=== PATIENT | male | born 1960 | race Caucasian/White ===

== ENCOUNTER 2022-08-16 21:31 | Emergency (ER) | payer OTHER, SELFPAY ==
[2022-08-16 21:42] VITALS: BP 149/97; PULSE 56; RESP 16; TEMP 36.3; O2SAT 95; BMI 38.3
[2022-08-16 21:45] VITALS: O2SAT 96
--- NOTE | 2022-08-16 21:48 | CRLHL7_ITS ---
For Patients: As a result of the Century Cures Act, medical imaging exams and procedure reports are released immediately into your electronic medical record. You may view this report before your referring provider. If you have questions, please contact your health care provider. INDICATION: Shortness of breath. TECHNIQUE: CT chest PE was acquired with 100 cc Omnipaque 350 IV contrast. COMPARISON: None. FINDINGS: Heart and vasculature: Contrast opacification of the pulmonary arterial tree is adequate. No sign of pulmonary embolism. Heart size is normal. Thoracic aorta and pulmonary artery are normal in caliber. Lungs and pleura: Few additional scattered calcified granulomas, including 5 millimeter upper lobe nodule (series 5, image 74). No suspicious nodules or infiltrates. No pleural effusions, pleural thickening, or pneumothorax. Lymph nodes/mediastinum: No mediastinal, hilar, or axillary adenopathy. Chest wall: No masses. Upper abdomen: No acute or significant findings. Bones: Unremarkable for age. IMPRESSION: No pulmonary embolism, as questioned. Please note that all CT scans at this facility use dose modulation, iterative reconstruction, and/or weight-based dosing when appropriate to reduce radiation dose to as low as reasonably achievable. Dictated by Esteban Stewart MD @ 08/16/2022 11:25:54 PM (Electronically Signed)
--- NOTE | 2022-08-16 21:56 | ED_ITS ---
HPI - General Adult General Time Seen by Provider: 21:56 Date Seen: 08/16/22 Chief complaint: Shortness of Breath/Dyspnea Stated complaint: Short of Breath Time Seen by Provider: 08/16/22 21:45 Source: patient Mode of arrival: ambulatory Limitations: no limitations History of Present Illness HPI narrative: Patient is a 61 year white male with a history of hypertension who uses CPAP for sleep apnea, who had an episode of about 45 minutes tonight worry felt lightheaded proceeded by a an anxious feeling, subsequently some chest tightness, and shortness of breath. He feels pretty much back to normal now. He went to bed tonight feeling well. He has not had any COVID symptoms. No chronic respiratory problems, no heart issues to his knowledge. His BMI is elevated. He takes atenolol for hypertension. No leg swelling, or edema no history of bleeding or clotting problems. Related Data Home Medications Medication Instructions Recorded Confirmed Flonase DAILY 08/16/22 Men's Daily Multivit-Mineral 08/16/22 acetaminophen 325 mg capsule 650 mg PO TID PRN 08/16/22 08/16/22 (Tylenol) atenolol 50 mg tablet 50 mg PO DAILY 08/16/22 08/16/22 atorvastatin 40 mg tablet 40 mg PO QPM 08/16/22 08/16/22 cholecalciferol (vitamin D3) 50 50 mcg PO DAILY 08/16/22 08/16/22 mcg (2,000 unit) capsule cyclobenzaprine 10 mg tablet 10 mg PO TID PRN muscle spasm 08/16/22 08/16/22 gabapentin 100 mg capsule 600 mg PO BID 08/16/22 08/16/22 loratadine 10 mg tablet (Claritin) 10 mg PO DAILY 08/16/22 08/16/22 montelukast 10 mg tablet 10 mg PO QPM 08/16/22 08/16/22 olopatadine 0.1 % eye drops 1 drp ophthalmic (eye) BID 08/16/22 08/16/22 sildenafil 100 mg tablet 100 mg PO DAILY PRN 08/16/22 08/16/22 tamsulosin 0.4 mg capsule 0.4 mg PO DAILY 08/16/22 08/16/22 Allergies Allergy/AdvReac Type Severity Reaction Status Date / Time No Known Drug Allergies Allergy Verified 08/16/22 21:46 Review of Systems Status of ROS: Reports: 10 or more systems reviewed and unremarkable except as noted in History and below [facility] Social History Smoking Status: Former smoker How often do you have a drink containing alcohol: 4 or more times a week How many standard drinks containing alcohol do you have on a typical day: 1 or 2 AUDIT-C Alcohol total score: 4 Non-prescribed substance use: denies use Exam Narrative: Exam Narrative: Objective: Vital signs are unremarkable other than slightly elevated diastolic blood pressure Alert orient x3 noncyanotic HEENT is unremarkable no facial asymmetry no scleral icterus neck is supple Chest is clear Heart rate and rhythm regular systolic murmur Abdomen obese benign nontender Extremities are no edema, neurologic nonfocal Skin warm and dry , good peripheral perfusion Const: Vital Signs, click to edit/add: Vital Signs - 24 hr 08/16/22 21:42 08/16/22 21:45 08/16/22 23:08 Temperature 97.4 F L Pulse Rate [Left P ulse Oximeter] 56 L 53 L Respiratory Rate 16 16 Blood Pressure [Le ft Upper Arm] 149/97 H 143/78 H Pulse Oximetry 95 96 96 Oxygen Delivery Me thod Room Air Room Air Course Vital Signs Vital signs: Initial Vital Signs Temperature 97.4 F L 08/16/22 21:42 Temperature Source Temporal Artery Scan 08/16/22 21:42 Pulse Rate 56 L 08/16/22 21:42 Respiratory Rate 16 08/16/22 21:42 Blood Pressure 149/97 H 08/16/22 21:42 Blood Pressure Mean 114 08/16/22 21:42 Blood Pressure Position Semi-Fowlers 08/16/22 21:42 Pulse Oximetry 95 08/16/22 21:42 Oxygen Delivery Method 08/16/22 21:42 Vital Signs Temperature 97.4 F L 08/16/22 21:42 Pulse Rate 56 L 08/16/22 21:42 Respiratory Rate 16 08/16/22 21:42 Blood Pressure 149/97 H 08/16/22 21:42 Pulse Oximetry 95 08/16/22 21:42 Oxygen Delivery Method 08/16/22 21:42 Temperature 97.4 F L 08/16/22 21:42 Pulse Rate 50 L 08/17/22 00:06 Respiratory Rate 16 08/17/22 00:06 Blood Pressure 147/65 H 08/17/22 00:06 Pulse Oximetry 96 08/17/22 00:06 Oxygen Delivery Method 08/17/22 00:06 Medical Decision Making MDM Narrative Medical decision making narrative: 61-year-old white male with hypertension and obesity with a 45 minute episode of anxiety followed by lightheadedness chest tightness. The patient feels pretty much back to normal now. Son a pulse oximeter home that he had a lower heart rate, his heart rate here has been about 60. I think at this point need to rule out PE, acute coronary syndrome, anxiety, metabolic abnormality. Patient will get a 90 minute cardiac rule-out protocol, will also get a electrolytes, aspirin, cardio monitoring. Disposition pending findings. Also CT scan of the chest rule out PE would be appropriate. Will check a COVID test as well Addendum: The patient's CT scan of the chest looks unremarkable for or pneumonia. The patient's initial troponin is negative CRP is negative alcohol levels negative COVID is negative. White count is normal hemoglobin is normal, D-dimer is negative, ER profile is unremarkable, proBNP is normal. This point I a.m. unclear as to of what his symptoms may originated from, although he did have a component anxiety certain that could be related. I think because E noted a lower heart rate we should put him on a Holter monitor. He has had no monitoring difficulty here in his extended stay in the ER. He will need light activity, follow up with his regular doctor in the next couple of days during the Holter as described, return to ED sooner problems concerns worsening rather than follow up with Primary. Will complete a 2nd troponin at this time and this is negative he will be allowed to discharge home Addendum the patient's 2nd troponin was negative, he will be discharged with a Holter, light activity, follow up with primary care in the next 2-3 days. Return to ED sooner problems concerns difficulty. Lab Data Labs: Lab Results 08/16/22 08/16/22 08/16/22 Range/Units 00:01 21:45 21:45 WBC 6.57 (4.50-11.00) K/uL RBC 4.61 (4.30-5.90) m/uL Hgb 14.3 (13.5-17.5) gm/dL Hct 43.0 (37.0-53.0) % MCV 93 (80-100) fL MCH 31 (26-34) pg MCHC 33 (32-36) gm/dL RDW Coeff of Suman 13.4 (11.5-15.5) % Plt Count 217 (140-440) K/uL Neut % (Auto) 54.0 (42.0-72.0) % Lymph % (Auto) 29.4 (20-44) % [place] % (Auto) 14.5 H (0.0-11.0) % Eos % (Auto) 1.7 (0.0-7.0) % Baso % (Auto) 0.2 (0.0-3.0) % Neut # (Auto) 3.56 (1.7-7.0) K/uL Lymph # (Auto) 1.93 (0.90-2.90) K/uL [place] # (Auto) 1.00 H (0.00-0.90) K/UL Eos # (Auto) 0.11 (0.00-0.50) K/uL Baso # (Auto) 0.01 (0.00-0.30) K/uL Abs Immat Gran (auto) 0.01 (0.00-0.30) K/uL INR (0.91-1.10) D-Dimer Quant (PE/DVT) (0.00-0.50) ug/ml Sodium 140 (135-149) mmol/L Potassium 4.2 (3.6-5.1) mmol/L Chloride 106 (96-114) mmol/L Carbon Dioxide 25 (20-32) mmol/L BUN 16 (7-30) mg/dL Creatinine 0.9 (0.5-1.5) mg/dL Estimated Creat Clear 102.75 Estimated GFR 98 ml/min Glucose 109 (60-115) mg/dL Lactate (0.5-1.9) mmol/L Calcium 9.2 (8.4-10.6) mg/dL Total Bilirubin (0.1-1.5) mg/dL Direct Bilirubin (0.0-0.5) mg/dL AST (12-35) U/L ALT (4-50) U/L Alkaline Phosphatase (40-150) U/L Troponin I (0.01-0.04) ng/mL C-Reactive Protein < 0.5 L (0.5-1.0) mg/dL NT-Pro-B Natriuret Pep (0-125) PG/mL Total Protein (6.0-8.3) g/dL Albumin (3.3-5.0) g/dL Ethyl Alcohol (0.01-0.03) % SARS-CoV-2 (PCR) (Negative) POC Troponin I 0.00 L (0.01-0.04) ng/ml 08/16/22 08/16/22 08/16/22 Range/Units 21:45 21:45 21:45 WBC (4.50-11.00) K/uL RBC (4.30-5.90) m/uL Hgb (13.5-17.5) gm/dL Hct (37.0-53.0) % MCV (80-100) fL MCH (26-34) pg MCHC (32-36) gm/dL RDW Coeff of Suman (11.5-15.5) % Plt Count (140-440) K/uL Neut % (Auto) (42.0-72.0) % Lymph % (Auto) (20-44) % [place] % (Auto) (0.0-11.0) % Eos % (Auto) (0.0-7.0) % Baso % (Auto) (0.0-3.0) % Neut # (Auto) (1.7-7.0) K/uL Lymph # (Auto) (0.90-2.90) K/uL [place] # (Auto) (0.00-0.90) K/UL Eos # (Auto) (0.00-0.50) K/uL Baso # (Auto) (0.00-0.30) K/uL Abs Immat Gran (auto) (0.00-0.30) K/uL INR 0.93 (0.91-1.10) D-Dimer Quant (PE/DVT) 0.28 (0.00-0.50) ug/ml Sodium (135-149) mmol/L Potassium (3.6-5.1) mmol/L Chloride (96-114) mmol/L Carbon Dioxide (20-32) mmol/L BUN (7-30) mg/dL Creatinine (0.5-1.5) mg/dL Estimated Creat Clear Estimated GFR ml/min Glucose (60-115) mg/dL Lactate 1.1 (0.5-1.9) mmol/L Calcium (8.4-10.6) mg/dL Total Bilirubin 0.6 (0.1-1.5) mg/dL Direct Bilirubin 0.0 (0.0-0.5) mg/dL AST 36 H (12-35) U/L ALT 32 (4-50) U/L Alkaline Phosphatase 83 (40-150) U/L Troponin I < 0.01 L (0.01-0.04) ng/mL C-Reactive Protein (0.5-1.0) mg/dL NT-Pro-B Natriuret Pep 69 (0-125) PG/mL Total Protein 7.0 (6.0-8.3) g/dL Albumin 4.4 (3.3-5.0) g/dL Ethyl Alcohol < 0.01 L (0.01-0.03) % SARS-CoV-2 (PCR) (Negative) POC Troponin I (0.01-0.04) ng/ml 08/16/22 08/16/22 Range/Units 21:50 23:30 WBC (4.50-11.00) K/uL RBC (4.30-5.90) m/uL Hgb (13.5-17.5) gm/dL Hct (37.0-53.0) % MCV (80-100) fL MCH (26-34) pg MCHC (32-36) gm/dL RDW Coeff of Suman (11.5-15.5) % Plt Count (140-440) K/uL Neut % (Auto) (42.0-72.0) % Lymph % (Auto) (20-44) % [place] % (Auto) (0.0-11.0) % Eos % (Auto) (0.0-7.0) % Baso % (Auto) (0.0-3.0) % Neut # (Auto) (1.7-7.0) K/uL Lymph # (Auto) (0.90-2.90) K/uL [place] # (Auto) (0.00-0.90) K/UL Eos # (Auto) (0.00-0.50) K/uL Baso # (Auto) (0.00-0.30) K/uL Abs Immat Gran (auto) (0.00-0.30) K/uL INR (0.91-1.10) D-Dimer Quant (PE/DVT) (0.00-0.50) ug/ml Sodium (135-149) mmol/L Potassium (3.6-5.1) mmol/L Chloride (96-114) mmol/L Carbon Dioxide (20-32) mmol/L BUN (7-30) mg/dL Creatinine (0.5-1.5) mg/dL Estimated Creat Clear Estimated GFR ml/min Glucose (60-115) mg/dL Lactate (0.5-1.9) mmol/L Calcium (8.4-10.6) mg/dL Total Bilirubin (0.1-1.5) mg/dL Direct Bilirubin (0.0-0.5) mg/dL AST (12-35) U/L ALT (4-50) U/L Alkaline Phosphatase (40-150) U/L Troponin I Cancelled (0.01-0.04) ng/mL C-Reactive Protein (0.5-1.0) mg/dL NT-Pro-B Natriuret Pep (0-125) PG/mL Total Protein (6.0-8.3) g/dL Albumin (3.3-5.0) g/dL Ethyl Alcohol (0.01-0.03) % SARS-CoV-2 (PCR) Negative SARS-CoV-2 (Negative) POC Troponin I (0.01-0.04) ng/ml Discharge Plan Discharge Clinical Impression: Shortness of breath Patient Disposition: Home w/ Parent or Adult Condition: Improved Additional Instructions: Light activity, Holter monitor at home, continue home medication. Neck with primary care doctor early next week, return to ED sooner problems concerns difficulty. Activity Level: Light activity Discharge Diet: Regular Prescriptions: No Action gabapentin 100 mg capsule 600 mg PO BID olopatadine 0.1 % drops 1 drp ophthalmic (eye) BID Rx Instructions: separate doses by at least 6-8 hours atenolol 50 mg tablet 50 mg PO DAILY atorvastatin 40 mg tablet 40 mg PO QPM cholecalciferol (vitamin D3) 50 mcg (2,000 unit) capsule 50 mcg PO DAILY cyclobenzaprine 10 mg tablet 10 mg PO TID PRN (Reason: muscle spasm) Flonase 50 mcg aerosol DAILY Men's Daily Multivit-Mineral montelukast 10 mg tablet 10 mg PO QPM sildenafil 100 mg tablet 100 mg PO DAILY PRN Rx Instructions: administer 30 minutes to 4 hours before activity tamsulosin 0.4 mg capsule 0.4 mg PO DAILY acetaminophen [Tylenol] 325 mg capsule 650 mg PO TID PRN loratadine [Claritin] 10 mg tablet 10 mg PO DAILY Stand Alone Forms: MyHealth Info Instructions
[2022-08-16 22:02] LABS: Lactate* 1.1 mmol/L (0.5-1.9)
[2022-08-16 22:05] LABS: Basophils Absolute Auto 0.01 K/uL (0.00-0.30); Basophils Percent Auto 0.2 % (0.0-3.0); Eosinophils Absolute Auto 0.11 K/uL (0.00-0.50); Eosinophils Percent Auto 1.7 % (0.0-7.0); Hemoglobin* 14.3 gm/dL (13.5-17.5); Immature Granulocytes Abs Auto 0.01 K/uL (0.00-0.30); Lymphocytes Absolute Auto 1.93 K/uL (0.90-2.90); Lymphocytes Percent Auto 29.4 % (20-44); Mean Corpuscular HGB Conc 33 gm/dL (32-36); Mean Corpuscular Hemoglobin 31 pg (26-34); Mean Corpuscular Volume 93 fL (80-100); Monocytes Percent Auto 14.5 % (0.0-11.0); Neutrophils Absolute Auto 3.56 K/uL (1.7-7.0); Platelet Count* 217 K/uL (140-440); RDW Coefficient of Variation % 13.4 % (11.5-15.5); Red Blood Count 4.61 m/uL (4.30-5.90); White Blood Count* 6.57 K/uL (4.50-11.00)
[2022-08-16 22:08] LABS: Slide Review Reflex No
[2022-08-16] MEDS: ASPIRIN 81 MG TAB.CHEW 324 MG PO (22:22)
[2022-08-16 22:24] LABS: Albumin* 4.4 g/dL (3.3-5.0)
[2022-08-16 22:25] LABS: Chloride* 106 mmol/L (96-114); INR 0.93 (0.91-1.10); Potassium* 4.2 mmol/L (3.6-5.1); Prothrombin Time 12.8 Seconds; Sodium* 140 mmol/L (135-149)
[2022-08-16 22:27] LABS: Alanine Aminotransferase* 32 U/L (4-50); Alkaline Phosphatase* 83 U/L (40-150); Aspartate Amino Transferase* 36 U/L (12-35); Bilirubin Total* 0.6 mg/dL (0.1-1.5)
--- OUTSIDE RECORDS SUMMARY | 2022-08-16 22:27 | XMS_ITS | Encounter Summary ---
:1960 Author Organization [facility] Address [address] [place] [address] Care Team Providers Name Role Phone Unavailable Primary Care Provider Unavailable Reason for Visit Reason Comments Med Refill Encounter Details Date Type Department Care Team Description 03/13/2022 Refill Department of Neurology in Yanira Mccoy M.D., Med Refill [place], [place] [facility] [address] [place] [address] [place] [address] (Wo rk) Social History Tobacco Use Types Packs/Day Years Used Date Smoking Tobacco: Former Smokeless Tobacco: Former Snuff Qu it: 1997 Comments: Snus pouch Sex Assigned at Date Recorded Not on file documented as of this encounter Miscellaneous Notes Telephone Encounter - Christy Chandler L.P.N. - 03/13/2022 4:09 PM CDT Patient notified that Gabapentin 600 mg four times a day has been ordered and sent to pharmacy. Telephone Encounter - Christy Chandler L.PZarinaN. - 03/13/2022 2:55 PM CDT Currently patient is taking Gabapentin 100 mg 5 capsules for total of 500 mg . Taking every 4 hours as needed but has been taking every 4 hours around the clock at present. Wondering if Gabapentin should be 600 mg ? Or continue with 100 mg tablets. Please order. Telephone Encounter - Millicent Lucero - 03/13/2022 2:35 PM CDT Different directions from med list, please advise on request. Telephone Encounter - Alfred Mtz - 03/13/2022 2:18 PM CDT Primary Provider: No primary care provider on file. Name of Medication: Gabapentin Strength: 500 mg Frequency: 1 capsule every 4 hours Pharmacy (include location): [facility] documented in this encounter Plan of Treatment Not on filedocumented as of this encounter Visit Diagnoses Not on filedocumented in this encounter
--- OUTSIDE RECORDS SUMMARY | 2022-08-16 22:27 | XMS_ITS | Clinical Summary ---
:1960 Author Organization [facility] [place] [address] Care Team Providers Name Role Phone Mario Schwartz MD Primary Care Provider [phone] Allergies No known active allergies Medications Medication Sig Dispensed Refills Start End Date Status Date cholecalciferol Take 2,000 0 Act janes (VITAMIN D3) 2,000 Units by unit capsule mouth once daily. fluticasone (50 mcg Inhale 2 1 Bottle 12 Active per actuation) nasal Sprays into 9 solution both nostrils (FLONASE)Indications once daily. : Hayfever loratadine Take 1 tablet 0 Activ e (CLARITIN) 10 mg by mouth once 9 tabletIndications: daily. Hayfever medication order Donjoy 1 unit 0 Act janes composerIndications: foamwrist 1 Left lateral splint XL, epicondylitis, Left DJO Neuralgia of left [id number] upper extremity montelukast Take 1 Tablet 30 Tablet 12 Acti ve (SINGULAIR) 10 mg (10 mg) by 1 tabletIndications: mouth at Allergic bedtime. conjunctivitis of both eyes atorvastatin Take 1 Tablet 30 Tablet 12 Act janes (LIPITOR) 40 mg (40 mg) by 1 tabletIndications: mouth at Hypertension bedtime. atenoloL (TENORMIN) Take 1 Tablet 30 Tablet 12 Active 50 mg (50 mg) by 1 tabletIndications: mouth once Essential daily. hypertension tamsulosin (FLOMAX) Take 1 30 Capsule 12 Active 0.4 mg Capsule (0.4 1 capsuleIndications: mg) by mouth Urinary hesitancy once daily after a meal. sildenafil citrate Take 1 Tablet 10 Tablet 11 Active (VIAGRA) 100 mg (100 mg) by 1 tabletIndications: mouth once ED (erectile daily if dysfunction) of needed for organic origin Erectile Dysfunction. Take 30min to 4 hours before sexual activity. Max 100mg/24hr. olopatadine PLACE 1 DROP 5 mL 3 Activ e (PATANOL) 0.1 % INTO BOTH 2 ophthalmic EYES TWICE A solutionIndications: DAY Allergic conjunctivitis of both eyes cyclobenzaprine Take 1 Tablet 30 tablet. 3 Active (FLEXERIL) 10 mg (10 mg) by 2 tabletIndications: mouth 3 times Pain in left arm daily if needed for Muscle Spasm. SUMAtriptan Take 0.5-1 10 Tablet 0 Active (Imitrex) 100 mg Tablets 2 tabletIndications: (50-100 mg) Episodic cluster by mouth 2 headache, not times daily intractable if needed for Migraine. Give at minimum 2hrs apart. Max Dose: 200mg per 24hrs. verapamiL (VERELAN) Take 1 30 Capsule 1 Active 180 mg Capsule (180 2 Controlled-Release mg) by mouth capsuleIndications: every Episodic cluster morning. headache, not intractable, Hypertension acetaminophen Take 2 0 Active (TYLENOL ORAL) Tablets by mouth 3 times daily. ibuprofen (ADVIL; Take 600 mg 0 Active MOTRIN) 200 mg by mouth 3 tablet times daily. multivit-minerals/FA Take 1 Tablet 0 Active /lycopene (MEN'S by mouth once DAILY daily. MULTIVIT-MINERAL ORAL) ondansetron (ZOFRAN Place 1 12 Tablet 0 Active ODT) 4 mg Tablet (4 mg) 2 disintegrating on the tongue tabletIndications: every 8 hours Diverticulitis if needed for Nausea/Vomiti ng. oxyCODONE Take 1 Tablet 15 Tablet 0 Active (ROXICODONE) 5 mg (5 mg) by 2 immediate release mouth every 6 tabletIndications: hours if Diverticulitis needed for Pain. cyclobenzaprine 1/2 to 1 tab 30 Tablet 11 A ctive (FLEXERIL) 10 mg at bedtime 2 tabletIndications: for muscle Headache in back of spasms head gabapentin Take 300 mg 180 Capsule 3 Activ e (NEURONTIN) 300 mg every 4 hours 2 capsuleIndications: by mouth Occipital neuralgia, while awake. unspecified laterality mesalamine (LIALDA) TAKE 2 0 Active 1.2 gram TABLETS BY 2 delayed-release MOUTH DAILY tablet WITH A MEAL. CPAPIndications: [facility] CPAP machine 1 Each Active (obstructive sleep for home use 2 apnea) at pressure 9 cmw, nasal mask x1/3month with nasal pillows x 2/mo; Starting pressure at 5 cmw balsalazide TAKE 1 90 capsule. 5 07/24/20 Discon tinued (COLAZAL) 750 mg CAPSULE BY 1 22 (* Patient capsuleIndications: MOUTH ONCE states no Ulcerative DAILY longer rectosigmoiditis marci ing/Not on with rectal bleeding sending () facility l ist) CPAPIndications: [facility] CPAP machine 1 Each Discontinued (obstructive sleep for home use 2 22 (Reorder apnea) at pressure (E-cance l not 4-15 cmw, sent)) nasal mask x1/3month with nasal pillows x 2/mo Active Problems Problem Noted Date [facility] 04/11/2022 AHI-15 05/24/2022 Occipital headache 02/23/2022 Blood in stool 02/23/2022 Body aches 02/23/2022 Diarrhea 02/23/2022 LFT elevation 02/23/2022 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 Overview: Flexible sigmoidoscopy 09/2017 - Ulcerat janes colitis involving rectosigmoid area, will try balsalaside Proctitis 08/06/2017 Fatty liver 08/06/2017 FH: colon cancer 02/13/2017 Diverticulitis 11/01/2016 Colonic diverticular abscess 11/01/2016 Tobacco use disorder 03/29/2015 Obesity, unspecified 12/24/2012 Lesion of skin of face 12/24/2012 Environmental allergies 06/30/2012 Mixed hyperlipidemia 10/23/2011 Hypertension 05/29/2010 Personal history of colonic polyps Overview: Recheck 5 yrs Rectal bleeding Numbness and tingling in left arm Neck pain on left side Arm pain, diffuse Ulcerative colitis, chronic Resolved Problems Problem Noted Date Resolved Date Diaphoresis 02/23/2022 07/24/2022 Chills 02/23/2022 07/24/2022 Hx of diverticulitis of colon 02/13/2017 06/05/2019 Vitamin D deficiency 01/29/2010 06/05/2019 RECTAL BLEEDING 12/18/2007 06/30/2012 Disturbance of skin sensation 12/17/2007 06/05/2019 Abscess of anal and rectal regions 06/30 LLQ abdominal pain 06/05/2019 Encounters Date Type Specialty Care Team Description 08/07/2022 Nurse/Clinic Staff Only Immu nization/Injection ; Immunization/In jection (COVID-19 vacci ne) 08/07/2022 Travel 07/24/2022 Telemedicine Marek Greene MD Sleep Follow -up 07/24/2022 Travel 07/22/2022 Orders Only Scanner <No scans attac hed> 06/20/2022 Nurse/Clinic Staff Only Immu nization/Injection (Methylpredniso lone Acetate injecti on, Mario Schwartz MD) 06/20/2022 Travel 06/20/2022 Telephone Mario Schwartz ACC Order Req shady Blank MD (allergy shot/) 05/24/2022 Telemedicine Marek Greene MD Telehealth ( First visit with Dr. Greene after sleep milo dy) 05/24/2022 Travel 05/23/2022 Orders Only Deana Jacob <No scans dewey ched> MD Angela from Last 3 Months Immunizations Name Administration Dates Next Due AMB Influenza, IIV3 (Age >=3 years) 08/03/2016 Preserve Free (Flu Clinic Only) COVID-19 vaccine (HyprKey 08/07/2022 30mcg/0.3mL) 12YO+ BIVALENT BOOSTER PF, MDV COVID-19 vaccine (HyprKey 02/16/2021, 01/26/2021 30mcg/0.3mL) PF, MDV Hepatitis B (Adult) 11/17/2009, 05/23/2009, 04/13/2009 Influenza A (H1N1), Inactivated (Age 0111/25/2009 6-35 Mos) Influenza A (H1N1), Inactivated (Age 0111/25/2009 >=3 Years) Influenza Virus, Unspecified 08/30/2018, 08/13/2014 Influenza, IIV3 (Age 6-35 mos) 08/18/2015, 08/08/2011 Influenza, IIV3 (Age >=3 years) 08/01/2016, 08/04/2012, 07/13, 08/11/2009 Influenza, IIV4 08/07/2022, 09/06/2021, 08/13/2019, 08/06/2017 Influenza, IIV4 (=>6mos) MDV 08/11/2020 Tdap 02/19/2018, 12/17/2007 Zoster (Shingrix-RZV, recombinant) 11/17/2018, 07/15/2018 Family History Medical History Relation Name Comments Good Health Brother Good Health Daughter x2 Hypertension Father Hypertension Mother emphysema Heart attack Paternal Grandfather Cancer-colon Sister Good Health Sister Relation Name Status Comments Brother Daughter Father Alive Mother Alive Paternal Grandfather Sister Social History Tobacco Use Types Packs/Day Years Used Date Former Smoker Cigars 20 11/11/1985 - 1 01/03/2016 Smokeless Tobacco: Current User Snuff Tobacco Cessation: Ready to Quit: No; Co unseling Given: Yes Alcohol Use Standard Drinks/Week Comments Yes 0 (1 standard drink = 0.6 oz pure alcoho l) 1-2 drinks/weekend Alcohol Habits Answer Date Recorded How often do you have a drink containing alcohol? Not asked How many drinks containing alcohol do you have on a Not aske d typical day when you are drinking? How often do you have six or more drinks on one Not asked occasion? Comment: 1-2 drinks/weekend 09/19/2017 Sex Assigned at Date Recorded Not on file COVID-19 Exposure Response Date Recorded In the last 10 days, have you been in contact with No / Unsu re 08/07/2022 10:28 AM CDT someone who was confirmed or suspected to have Coronavirus/COVID-19? Obstetrics History Last Filed Vital Signs Vital Sign Reading Time Taken Comments Blood Pressure 154/76 03/29/2022 10:50 AM CDT Pulse 52 03/29/2022 10:50 AM CDT Temperature 36.7 ??C (98.1 ??F) 02/28/2022 11:14 AM CDT Respiratory Rate 18 02/25/2022 3:30 PM CDT Oxygen Saturation 95% 03/29/2022 10:50 AM CDT Inhaled Oxygen Concentration - - Weight 136.5 kg (301 lb) 03/29/2022 10:50 AM CDT Height 186.7 cm (6' 1.52) 03/29/2022 10:50 AM CDT Body Mass Index 39.15 03/29/2022 10:50 AM CDT Plan of Treatment Health Maintenance Due Date Last Done Comments Fecal testing non-DNA 05/02/2017 05/02/2016, 03/23/2015, (FIT,FOBT,iFOBT) for age 45-75 01/30/2014 Depression screening for age 12+ 09/08/2022 09/08/2021, , 05/18/2020, Additional history exists BMI (ht and wt on same day) for 03/29/2023 03/29/2022, 03/2022, age 18+ 09/06/2021, Additional history exists Lipids for age 45-75 09/05/2026 09/05/2021, 05/11/2020, 10/08/2018, Additional history exists Colonoscopy through age 75 05/23/2027 05/23/2022, 7, 2013, Additional history exists Tetanus booster 02/20/2028 02/19/2018, 12/17/2007 Hepatitis C screening for age Completed 01/30/2014 18-79 Tdap Completed 02/19/2018, 12/17/2007 Zoster (shingles) series for age Completed 11/17/2018, 02/2018 50+ COVID-19 vaccine series Completed 08/07/2022, 10/24/2021, 02/16/2021, Additional history exists Influenza for age 50-64 Completed 08/07/2022, 09/06/2021, 08/11/2020, Additional history exists Procedures Procedure Name Priority Date/Time Associated Diagnosis Comme nts SCAN-DIAGNOSTIC 07/22/2022 12:00 AM Resul ts for this REPORT CDT procedure are i n the results section. SCAN-COLONOSCOPY 05/23/2022 11:00 AM Resu lts for this CDT procedure are i n the results section. from Last 3 Months Results SCAN-DIAGNOSTIC REPORT (07/22/2022 12:00 AM CDT) Narrative This result has an attachment that is no t available. Scanner OTHER SCAN-COLONOSCOPY (05/23/2022 11:00 AM CDT) Procedure Note Deana Jacob MD - 05/23/2022 10 :02 AM CDT [facility] [address] [place] [address], [address], [place] [address] Patient Name: Abhay Harman Gender : Male Exam Date: 05/23/2022 Visit Number: [id number] Age: 61 Years Date of : 1960 Attending MD: Deana Jacob MD Medical Record#: [id number] Procedure: Colonoscopy Indications: History of diverticulitis ? history of Ulcerative colitis on bals alazide Sister with colon cancer in 50s Referring MD: Referral Self Primary MD: Mario Schwartz MD Medications: Intra Procedure Medications : Patient received monitored anesthesia c are. Complications: No immediate complication s Procedure: An examination of the heart and lungs wa s performed and found to be within acceptable limits. . The patient was therefore deemed a reasonable candidate for endoscopy and sedation. The risks and benefits of the procedure were explained to the patient. After obtaining informed consent, the patient received monitored anesthesia care and I passed the scope without difficulty via the rectum to th e ileum. The appendiceal orifice and ic valve were identified. The scope was retroflexed during the examination The quality of the prep was good (Miralax/Gatorade/2 tablets Bisacodyl/Magnesium Citrate). This was a complete examination througho ut the entire colon. Findings: Polyp location: cecum. Quantity: 1. Size : 3 mm. Polyp shape: sessile. Maneuver: polypectomy was performed wit h a cold snare. Removal: complete. Retrieval: complete. Bleeding: none. Polyp location: ascending colon. Quantit y: 1. Size: 2 mm. Polyp shape: sessile. Maneuver: polypectomy was performed wit h a cold snare . Removal: complete. Retrieval: complete. Bleeding: none. Polyp location: transverse colon. Quanti ty: 1. Size: 8 mm. Polyp shape: sessile. Maneuver: polypectomy was performed wit h a cold snare . Removal: complete. Retrieval: complete. Bleeding: none. Diverticulosis. Location: - ascending co robert - transverse colon - descending colon - sigmoid. Description: moderate. Size: medium. Quantity: several. Inflammation present in the sigmoid colon Anal canal: medium sized internal hemorr hoid(s) Remainder of the exam is normal. Comments: Inflammation present in the si gmoid colon around the diverticulosis, biopsies taken from here. About 10 cm of the TI was visualized and it was normal. Impression: Colorectal polyps Diverticulosis of colon without divertic ulitis Hemorrhoids, internal Preliminary Plan: The patient and their physician will rec eive a copy of the pathology report as well as pathology-based recommendations for future screening or surveillance. Recommendation Comments: A 4-5 cm patch of inflammation in the sigmoid colon where diverticulosis is noted, biopsies taken. Patient caries a diagnosis of UC. I question if he has UC vs Diverticular associated inflammation. Await biopsy results. Foll ow up with Dr. Gonzales or DEEPAK. Pathology Results: A: COLON, CECUM, POLYP: 1. Normal colonic mucosa; a lymphoid ag gregate is present 2. Negative for serrated change, dyspla arturo, and malignancy B: COLON, ASCENDING, POLYP: 1. Tubular adenoma 2. Negative for high grade dysplasia 3. Per the colonoscopy report: a. Polyp size: 2 mm b. Resection: Complete c. Retrieval: Complete C: COLON, TRANSVERSE, POLYP: 1. Tubular adenoma 2. Negative for high grade dysplasia 3. Per the colonoscopy report: a. Polyp size: 8 mm b. Resection: Complete c. Retrieval: Complete D: COLON, SIGMOID, BIOPSY: 1. Minimally active chronic colitis, co nsistent with segmental colitis associated with diverticulosis (SCAD) 2. Negative for dysplasia 3. See comment COMMENTS D. Segmental colitis associated with div erticulosis (SCAD) is usually diagnosed incidentally during the course of evaluation of chronic diarrhea and/or abdominal pain. The diagnosis of SCAD is supported by the histologic finding of chronic colitis th at is confined to the colonic segment involved by diverticula. SCAD tends to respond to medical therapy; approximately one third of patients will relapse. A small percentage of these patients are ultimately found to h ave idiopathic inflammatory bowel disease. MICROSCOPIC A: Performed B: Performed C: Performed D: The histologic findings include: Distribution: Diffuse Cryptitis: Minimal Crypt abscess: None Crypt distortion: Mild Basal inflammation: Mild Granulomas: Absent SPECIAL STAINING/DEEPER A: Deeper Electronically signed by: Lucio person MD Interpreted at [facility], [address] [place] [id number] Orders Instruction(s)/Education: Instruction/Education Timeframe Assessme nt Colon Cancer Prevention K63.5 Colon Polyps K63.5 Diverticulosis/Diverticulitis K63.5 Hemorrhoids (Internal) K63.5 Follow-up visit/Referral: Order Comments follow-up visit with Charlie Gonzales MD o r DEEPAK Final Plan: Repeat colonoscopy in 5 years. We will attempt to contact you at approp riate intervals via U.S. mail. We may not be able to find you or contact you at that time, therefore you should know that the responsibility for following our recommendation rests with you. If you don't hear from us at t he time your procedure is due, please contact our office to schedule an appointment. If your contact information should change, please contact our office so that we can update your record. Additional Comments: egmental colitis associated with diverti culosis (SCAD) is usually diagnosed incidentally during the course of evaluation of chronic diarrhea and/or abdominal pain. The diagnosis of SCAD is supported by the histologic finding of chronic colitis th at is confined to the colonic segment involved by diverticula. SCAD tends to respond to medical therapy; approximately one third of patients will relapse. A small percentage of these patients are ultimately found to h ave idiopathic inflammatory bowel disease. _Electronically signed by: Deana Jacob MD 05/23/2022 cc: Mario Schwartz MD Deana Jacob MD OTHER from Last 3 Months Insurance Payer Benefit Plan / Subscriber ID Effective Dates Phone Addre ss Type Group BLUE CROSS BLUE [employer] OF [id number] 2014-Present [address] [address] [place] [address] MEDICA [employer] [id number] 2020-Present [address] [employer] [place] [address] Abhay Harman Personal/Family Self 1960 [address] (Home) [place] [phone] [employer] (Work) [phone] Advance Directives Latest Code Status on File Code Status Date Activated Date Inactivated Comments Full Code 02/23/2022 12:42 AM 02/23/2022 4:40 PM Code Status Discussion: Other Full Code 03/15/2017 7:25 AM 03/15/2017 11:44 AM Full Code 11/10/2016 3:27 AM 11/15/2016 6:24 PM Code Status Discussion: Discussed Full Code 11/01/2016 10:21 AM 11/05/2016 2:54 PM Full Code 03/08/2015 8:46 AM 03/08/2015 12:11 PM Care 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
--- OUTSIDE RECORDS SUMMARY | 2022-08-16 22:27 | XMS_ITS | Clinical Summary ---
:1960 Author Organization [facility] Address [address] [place] [address] Care Team Providers Name Role Phone Unavailable Primary Care Provider Unavailable Source Comments Patient records contain information from all sites at [facility]. For routine questions regarding patient records, call [phone] during business hours, M-F 8:00 AM - 5:00 PM Central Time. Record requests for emergency care only can be directed to [phone] at any time.[facility] Allergies Active Allergy Reactions Severity Noted Date Comments Ragweed Pollen Other (see comments) 03/08/2022 Water y/ itchy eyes Medications Medication Sig Dispensed Refills Start Date End Date Status verapamiL (VERELAN) Take 180 mg by 0 02/20/2022 Active 180 mg 24 hr capsule mouth daily. olopatadine (PATANOL) as needed. 0 01/12/2022 Active 0.1 % ophthalmic solution montelukast Take 10 mg by 0 09/06/2021 Act janes (SINGULAIR) 10 mg mouth at tablet bedtime. loratadine (CLARITIN) Take 1 tablet by 0 07/08/2019 Active 10 mg tablet mouth daily. ibuprofen Take 600 mg by 0 Activ e (ADVIL,MOTRIN) 200 mg mouth as needed. tablet gabapentin (NEURONTIN) Take 200 mg by 0 02/28/2022 Active 100 mg capsule mouth 3 (three) times a day. fluticasone propionate Administer 2 0 07/08/2019 Active (FLONASE) 50 sprays into mcg/actuation nasal nostril(s) spray daily. cyclobenzaprine 1/2 to 1 tab at 0 01/18/2022 Active (FLEXERIL) 10 mg bedtime for tablet muscle spasms cholecalciferol Take 2,000 Units 0 Active (VITAMIN D3) 50 mcg by mouth daily. (2,000 Unit) capsule multivitamin (MULTIPLE Take 1 tablet by 0 Active VITAMINS DAILY ORAL) mouth daily. atenoloL (TENORMIN) 50 Take 50 mg by 0 02/27/2022 Active mg tablet mouth daily. atorvastatin (LIPITOR) Take 40 mg by 0 02/27/2022 Active 40 mg tablet mouth at bedtime. mesalamine (LIALDA) Take 2 tablets 0 03/01/2022 Active 1.2 gram EC tablet by mouth daily. oxyCODONE (ROXICODONE) Take 5 mg by 0 02/25/2022 Active 5 mg immediate release mouth as needed. tablet sildenafiL (VIAGRA) Take 100 mg by 0 09/06/2021 Active 100 mg tablet mouth as needed. tamsulosin (FLOMAX) Take 0.4 mg by 0 09/06/2021 Active 0.4 mg 24 hr capsule mouth daily. acetaminophen Take 2 tablets 0 A ctive (TYLENOL) 500 mg by mouth as tablet needed. gabapentin (NEURONTIN) Take 1 tablet 360 tablet 3 03/13/2022 0 03/13/2023 Active 600 mg tablet (600 mg total) by mouth 4 (four) times a day. Active Problems Problem Noted Date Neuralgia Occipital 03/20/2022 Social History Tobacco Use Types Packs/Day Years Used Date Smoking Tobacco: Former Smokeless Tobacco: Former Snuff Qu it: 1997 Comments: Snus pouch Sex Assigned at Date Recorded Not on file Last Filed Vital Signs Vital Sign Reading Time Taken Comments Blood Pressure 153/96 05/09/2022 8:42 AM CDT Pulse 60 05/09/2022 8:42 AM CDT Temperature - - Respiratory Rate - - Oxygen Saturation - - Inhaled Oxygen Concentration - - Weight 135 kg (298 lb 11.6 oz) 05/09/2022 8:34 AM CDT Height 188 cm (6' 2.02) 03/08/2022 3:42 PM CDT Body Mass Index 38.34 03/08/2022 3:42 PM CDT Plan of Treatment Health Maintenance Due Date Last Done Comments CT Colonography 1960 Cologuard 1960 Colonoscopy 1960 Colorectal Cancer Screening 1960 FIT 1960 HIV Screening 1960 Hepatitis C Screening 1960 Depression Screening 11/11/2021 (Annual PHQ-2) COVID-19 Vaccine (4 - 12/19/2021 10/24/2021, 02/16/2021, Booster for Pfizer series) 01/26/2021 Office Visit for Blood 08/09/2022 05/09/2022 Pressure Check / Re-check Influenza Vaccine (#1) 2022 09/06/2021, 08/11/2020, 08/13/2019, Additional history exists Fasting Glucose for 11/15/2024 11/15/2021, 09/22/2021, Diabetes Screening 09/05/2021, Additional history exists Lipid (Cholesterol) 09/05/2026 09/05/2021, 05/11/2020, Screening 10/08/2018 DTaP,Tdap,and Td Vaccines 02/20/2028 02/19/2018, 12/17/2007 (3 - Td or Tdap) Hepatitis B Vaccines Completed 11/17/2009, 05/23/2009, 04/13/2009 Zoster Vaccines Completed 11/17/2018, 07/15/2018 Pneumococcal vaccine (0-64 Aged Out No lo nger eligible years) based on patient 's age to complete this topic Insurance Payer Benefit Plan Subscriber ID Effective Dates Phone Address Type / Group MEDICA [facility] [id number] 2020-Emy [phone] [address] [place] [address] [id number] PPO EMPLOYEE PLAN nt 2 [place] [id number]
--- OUTSIDE RECORDS SUMMARY | 2022-08-16 22:27 | XMS_ITS | Encounter Summary ---
:1960 Author Organization [facility] Address [address] [place] [address] Care Team Providers Name Role Phone Unavailable Primary Care Provider Unavailable Encounter Details Date Type Department Care Team Description 03/13/2022 Orders Only Department of Neurology in Yanira Mccoy M.D., [place], [place] [facility] [address] [facility] [address] [place] [address] [place], [place] [phone] (Wo rk) Social History Tobacco Use Types Packs/Day Years Used Date Smoking Tobacco: Former Smokeless Tobacco: Former Snuff Qu it: 1997 Comments: Snus pouch Sex Assigned at Date Recorded Not on file documented as of this encounter Plan of Treatment Not on filedocumented as of this encounter Visit Diagnoses Not on filedocumented in this encounter
--- OUTSIDE RECORDS SUMMARY | 2022-08-16 22:27 | XMS_ITS | Encounter Summary ---
:1960 Author Organization [facility] Address [address] [place] [address] Care Team Providers Name Role Phone Unavailable Primary Care Provider Unavailable Reason for Referral Outpatient (Routine) - Closed Specialty Diagnoses / Procedures Referred By Contact Refer red To Contact Neurology Yanira Mccoy M.D ., M.P.H. [facility] [place] [facility] [address] [place] [phone] Referral ID Status Reason Start Date Expiration Date Visits Requ ested Visits Authorized [id number] Closed 03/20/2022 03/20/2023 1 1 Outpatient (Routine) - Closed Specialty Diagnoses / Procedures Referred By Contact Refer red To Contact Diagnoses Occipital neuralgia [facility]ccoy M.D., [facility] [place] [facility] Procedures Nerve Block Injection NE INJ ANES [facility] [address] [place] [phone] Referral ID Status Reason Start Date Expiration Date Visits Requ ested Visits Authorized [id number] Closed 03/20/2022 03/20/2023 1 1 Reason for Visit Reason Comments Occipital nerve block Outpatient (Routine) - Closed Specialty Diagnoses / Procedures Referred By Contact Refer red To Contact Diagnoses Neuralgia Occipital Yanira Mccoy M.D., [facility] [place] [facility] Procedures PM Nerve Block injection Occipital; Greater; Proceduralist Choice; Right NE INJ ANES [facility] [address] [place] [phone] Referral ID Status Reason Start Date Expiration Date Visits Requ ested Visits Authorized [id number] Closed 03/08/2022 03/08/2023 1 1 Encounter Details Date Type Department Care Team Description 03/20/2022 Procedure visit Department of Yanira Mccoy Neuralg ia Occipital Neurology in [place], M.P.H. [place], [place] [address] [place] [address] [facility] [place] [phone] Social History Tobacco Use Types Packs/Day Years Used Date Smoking Tobacco: Former Smokeless Tobacco: Former Snuff Qu it: 1997 Comments: Snus pouch Sex Assigned at Date Recorded Not on file documented as of this encounter Last Filed Vital Signs Vital Sign Reading Time Taken Comments Blood Pressure 131/82 03/20/2022 11:12 AM CDT Pulse 64 03/20/2022 11:12 AM CDT Temperature - - Respiratory Rate - - Oxygen Saturation - - Inhaled Oxygen Concentration - - Weight 137 kg (301 lb 2.4 oz) 03/20/2022 11:12 AM CDT Height - - Body Mass Index 38.65 03/08/2022 3:42 PM CDT documented in this encounter Procedure Notes Yanira Mccoy M.D., M.P.H. - 03/20/2022 11:30 AM CDTAssociated Order(s): Nerve Block Injection Post-Procedure Diagnose(s): Neuralgia Occipital Nerve Block Injection Date/Time: 03/20/2022 11:31 AM Performed by: Yanira Mccoy M.D., M.P.H. Authorized by: Yanira Mccoy M.D., M.P.H. PROCEDURE SUMMARY Pre procedure pain score: 3/10 Body area: head/face/neck Procedure location (head/face/neck nerve): Right greater occipital Needle size: 25 G and 27 G Needle length: 0.5 in and 1.25 in Nerve block type: single injection Nerve stimulator: no INJECTED MEDICATIONS: Injection(s), anesthetic agent(s) and/or steroid(s): Total volume of injectate (mL): 5 4 mL bupivacaine 0.5 % (5 mg/mL) 50 mg methylPREDNISolone acetate 80 mg/mL 20 mg triamcinolone acetonide 40 mg/mL; 40 mg triamcinolone acetonide 40 mg/mL PROCEDURE DETAILS Greater occipital description: The patient was placed in the appropriate position with the neck in aflexed position. Prior to the procedure, the occipital protuberance was palpated, and a point one third from the midline on a line that connects the occipital protuberance to the mastoid process was kushal ntified as the anticipated location of the greater occipital nerve. Palpation was also performed to note the location of the occipital artery. The needle was introduced in a caudal to cephalad approachat a shallow angle taking care to gently contact periosteum. After negative aspiration the medication was introduced in a fan like manner. Following the injection, the needle was withdrawn. The patienttolerated the procedure well and there were no apparent complications. After an appropriate amount of observation, the patient was dismissed from the clinic in good condition under their own power. Complications: no apparent complications CONSENT Consent obtained: written UNIVERSAL PROTOCOL All relevant documentation and testing were reviewed and available. All required blood products, implants, devices and or special equipment were made available as applicable. Pre-procedure verificationwas conducted and the correct site was marked if required. A fire risk assessment was done as applicable. The procedural time-out was conducted prior to performing the procedure and confirmed in a procedural pause. PRE-PROCEDURE DETAILS Appropriate hand hygiene, gown, cap, mask, protective eyewear, sterile gloves, skin preparation, sterile drape, and strict aseptic technique were utilized as applicable for the procedure.: yes Skin preparation: alcohol SEDATION / ANESTHESIA Anesthesia method: local infiltration Local infiltrate type: bupivacaine documented in this encounter Plan of Treatment Scheduled Referrals Name Type Priority Associated Diagnoses Order S [facility] Neurology office Outpatient Referral Routine Expe cted: visit (clinic) 04/20/2022 (Approximate), Expires: 06/20/2023 documented as of this encounter Procedures Procedure Name Priority Date/Time Associated Diagnosis Comme nts PM NERVE BLOCK Routine 03/20/2022 11:31 AM Neuralgia Occipital Results for this INJECTION CDT procedure are i n the results section. documented in this encounter Results PM Nerve Block injection Occipital; Greater; Proceduralist Choice; Right (05/09/2022 9:04 AM CDT) Specimen (Source) Anatomical Location Collection Method / Collectio n Time Received Time / Laterality Volume Narrative Yanira Mccoy M.D., M.P.H. - 05/09/20 9:04 AM CDT Yanira Mccoy M.D., M.P.H. ? 05/09/2022 ??2:09 PM PM Nerve Block injection Occipital; Grea ter; Proceduralist Choice; Right Date/Time: 05/09/2022 9:04 AM Performed by: Yanira Mccoy M.D., M.P .H. Authorized by: Yanira Mccoy M.D., M. P.H. PROCEDURE SUMMARY Pre procedure pain score: 1/10 Post procedure pain score: 0/10 ?? Body area: head/face/neck Procedure location (head/face/neck nerve ): Right greater occipital Greater occipital position: seated Needle size: 25 G Needle length: 0.5 in Nerve block type: single injection Nerve stimulator: no INJECTED MEDICATIONS: Injection(s), anes thetic agent(s) and/or steroid(s): ?? 4 mL bupivacaine 0.5 % (5 mg/mL) 50 mg methylPREDNISolone acetate 80 mg/m L 40 mg triamcinolone acetonide 40 mg/mL PROCEDURE DETAILS Greater occipital description: The patie nt was placed in the appropriate position with the neck in a flexed posit ion. ??Prior to the procedure, the occipital protuberance was palpated, and a point one third from the midline on a line that connects the occi pital protuberance to the mastoid process was identified as the anticipate d location of the greater occipital nerve. ??Palpation was also pe rformed to note the location of the occipital artery. The needle was introdu efrain in a caudal to cephalad approach at a shallow angle taking care to gently contact periosteum. ?? After negative aspiration the medication was introduced in a fan like manner. Following the injection, the nee dle was withdrawn. ??The patient tolerated the procedure well and there w ere no apparent complications. ?? After an appropriate amount of observati on, the patient was dismissed from the clinic in good condition under their own power. ?? Complications: no apparent complications ?? CONSENT Consent obtained: written PRE-PROCEDURE DETAILS Appropriate hand hygiene, gown, cap, mas k, protective eyewear, sterile gloves, skin preparation, sterile drape, and strict aseptic technique were utilized as applicable for the procedure .: yes ?? Skin preparation: alcohol SEDATION / ANESTHESIA Anesthesia method: local infiltration Yanira Mccoy M.D., M.P.H. PROCEDURE/MINOR SURGICAL O RDERABLES Nerve Block Injection (03/20/2022 11:31 AM CDT) Specimen (Source) Anatomical Location Collection Method / Collectio n Time Received Time / Laterality Volume Narrative Yanira Mccoy M.D., M.P.H. - 03/20/20 11:31 AM CDT Yanira Mccoy M.D., M.P.H. ? 03/20/2022 ??2:24 PM Nerve Block Injection Date/Time: 03/20/2022 11:31 AM Performed by: Yanira Mccoy M.D., M.P .H. Authorized by: Yanira Mccoy M.D., M. P.H. PROCEDURE SUMMARY Pre procedure pain score: 3/10 ?? Body area: head/face/neck Procedure location (head/face/neck nerve ): Right greater occipital Needle size: 25 G and 27 G Needle length: 0.5 in and 1.25 in Nerve block type: single injection Nerve stimulator: no INJECTED MEDICATIONS: Injection(s), anes thetic agent(s) and/or steroid(s): Total volume of injectate (mL): 5 ?? 4 mL bupivacaine 0.5 % (5 mg/mL) 50 mg methylPREDNISolone acetate 80 mg/m L 20 mg triamcinolone acetonide 40 mg/mL; 40 mg triamcinolone acetonide 40 mg/mL PROCEDURE DETAILS Greater occipital description: The patie nt was placed in the appropriate position with the neck in a flexed posit ion. ??Prior to the procedure, the occipital protuberance was palpated, and a point one third from the midline on a line that connects the occi pital protuberance to the mastoid process was identified as the anticipate d location of the greater occipital nerve. ??Palpation was also pe rformed to note the location of the occipital artery. The needle was introdu efrain in a caudal to cephalad approach at a shallow angle taking care to gently contact periosteum. ?? After negative aspiration the medication was introduced in a fan like manner. Following the injection, the nee dle was withdrawn. ??The patient tolerated the procedure well and there w ere no apparent complications. ?? After an appropriate amount of observati on, the patient was dismissed from the clinic in good condition under their own power. ?? Complications: no apparent complications ?? CONSENT Consent obtained: written UNIVERSAL PROTOCOL All relevant documentation and testing w ere reviewed and available. All required blood products, implants, devic es and or special equipment were made available as applicable. Pre-proced ure verification was conducted and the correct site was marked if required. A fire risk assessment was done as applicable. The procedural time-out w as conducted prior to performing the procedure and confirmed in a procedu ral pause. PRE-PROCEDURE DETAILS Appropriate hand hygiene, gown, cap, mas k, protective eyewear, sterile gloves, skin preparation, sterile drape, and strict aseptic technique were utilized as applicable for the procedure .: yes ?? Skin preparation: alcohol SEDATION / ANESTHESIA Anesthesia method: local infiltration Local infiltrate type: bupivacaine Yanira Mccoy M.D., M.P.H. PROCEDURE/MINOR SURGICAL O RDERABLES documented in this encounter Visit Diagnoses Diagnosis Neuralgia Occipital documented in this encounter Administered Medications Inactive Administered Medications - up to 3 most recent administrations Medication Order MAR Action Action Date Dose Rate Site bupivacaine 0.5 % (5 mg/mL) Given 03/20/2022 11:31 AM CDT 4 mL injection 4 mL (MARCAINE) 4 mL, injection, One-Time Injection, Starting on Sat03/20/22 at 1131, For 1 dose methylPREDNISolone acetate injection 50 mg Given 03/20/2022 11:3 1 AM CDT 50 mg (DEPO-Medrol) 50 mg, injection, One-Time Injection, Starting on Sat03/20/22 at 1131, For 1 dose triamcinolone acetonide injection 20 mg Given 03/20/2022 11:31 A M CDT 20 mg (KENALOG-40) 20 mg, injection, One-Time Injection, Starting on Sat03/20/22 at 1131, For 1 dose triamcinolone acetonide injection 40 mg Given 03/20/2022 11:31 A M CDT 40 mg (KENALOG-40) 40 mg, injection, One-Time Injection, Starting on Sat03/20/22 at 1131, For 1 dose documented in this encounter
--- OUTSIDE RECORDS SUMMARY | 2022-08-16 22:27 | XMS_ITS | Encounter Summary ---
:1960 Author Organization [facility] Address [address] [place] [address] Care Team Providers Name Role Phone Unavailable Primary Care Provider Unavailable Reason for Referral Outpatient (Routine) - Authorized Specialty Diagnoses / Procedures Referred By Contact Refer red To Contact Neurology Yanira Mccoy M.D ., M.P.H. [facility] [address] [place] [phone] Referral ID Status Reason Start Date Expiration Date Visits V isits Requested Authorized [id number] Authorized 05/09/2022 05/09/2023 1 1 Reason for Visit Reason Comments Follow-up Neuralgia occipital Outpatient (Routine) - Closed Specialty Diagnoses / Procedures Referred By Contact Refer red To Contact Neurology Yanira Mccoy M.D ., M.P.H. [facility] Region [address] [place] [phone] Referral ID Status Reason Start Date Expiration Date Visits Requ ested Visits Authorized [id number] Closed 03/20/2022 03/20/2023 1 1 Encounter Details Date Type Department Care Team Description 05/09/2022 Office Visit Department of Yanira Mccoy, Neuralgia Occipital Neurology in [place], M.P.H. (Primary Dx) [place], [place] [address] [phone] Social History Tobacco Use Types Packs/Day Years [...] 11.6 oz) 05/09/2022 8:34 AM CDT Height - - Body Mass Index 38.34 03/08/2022 3:42 PM CDT documented in this encounter Progress Notes Yanira Mccoy M.D., M.P.H. - 05/09/2022 8:45 AM CDT SUBJECTIVE CHIEF COMPLAINT / REASON FOR VISIT Abhay Harman is a 61 y.o. male who presents for evaluation of Follow-up (Neuralgia occipital). HISTORY OF PRESENT ILLNESS Patient returns for follow-up on and right-sided occipital headache. After the greater occipital nerve block some three months ago he was essentially pain-free until about 10 days or two weeks ago he started have some trace of pain on the right side. At today's visit he asks whether he should do this procedure again or not. He is also on gabapentin which might be providing some relief. He says his pain is only about 1/10 currently and prior to the injection it was closer to 10/10. After some discussion he has elected to re do the right-sided greater occipital nerve block. This please see the procedure note for details of that. No past medical history on file. No past surgical history on file. MEDICATIONS: Current Outpatient Medications: ??? acetaminophen (TYLENOL) 500 mg tablet, Take 2 tablets by mouth as needed., Disp: , Rfl: ??? atenoloL (TENORMIN) 50 mg tablet, Take 50 mg by mouth daily., Disp: , Rfl: ??? atorvastatin (LIPITOR) 40 mg tablet, Take 40 mg by mouth at bedtime., Disp: , Rfl: ??? cholecalciferol (VITAMIN D3) 50 mcg (2,000 Unit) capsule, Take 2,000 Units by mouth daily., Disp: , Rfl: ??? cyclobenzaprine (FLEXERIL) 10 mg tablet, 1/2 to 1 tab at bedtime for muscle spasms, Disp: , Rfl: ??? fluticasone propionate (FLONASE) 50 mcg/actuation nasal spray, Administer 2 sprays into nostril(s) daily., Disp: , Rfl: ??? gabapentin (NEURONTIN) 600 mg tablet, Take 1 tablet (600 mg total) by mouth 4 (four) times a day., Disp: 360 tablet, Rfl: 3 ??? ibuprofen (ADVIL,MOTRIN) 200 mg tablet, Take 600 mg by mouth as needed., Disp: , Rfl: ??? loratadine (CLARITIN) 10 mg tablet, Take 1 tablet by mouth daily., Disp: , Rfl: ??? mesalamine (LIALDA) 1.2 gram EC tablet, Take 2 tablets by mouth daily., Disp: , Rfl: ??? montelukast (SINGULAIR) 10 mg tablet, Take 10 mg by mouth at bedtime., Disp: , Rfl: ??? multivitamin (MULTIPLE VITAMINS DAILY ORAL), Take 1 tablet by mouth daily., Disp: , Rfl: ??? olopatadine (PATANOL) 0.1 % ophthalmic solution, as needed., Disp: , Rfl: ??? sildenafiL (VIAGRA) 100 mg tablet, Take 100 mg by mouth as needed., Disp: , Rfl: ??? tamsulosin (FLOMAX) 0.4 mg 24 hr capsule, Take 0.4 mg by mouth daily., Disp: , Rfl: ??? gabapentin (NEURONTIN) 100 mg capsule, Take 200 mg by mouth 3 (three) times a day., Disp: , Rfl: ??? oxyCODONE (ROXICODONE) 5 mg immediate release tablet, Take 5 mg by mouth as needed., Disp: , Rfl: ??? verapamiL (VERELAN) 180 mg 24 hr capsule, Take 180 mg by mouth daily., Disp: , Rfl: ALLERGY: Allergies Allergen Reactions ??? Ragweed Pollen Other (see comments) Watery/ itchy eyes No family history on file. Social History Socioeconomic History ??? Marital status: Single Spouse name: Not on file ??? Number of children: Not on file ??? Years of education: Not on file ??? Highest education level: Not on file Occupational History ??? Not on file Tobacco Use ??? Smoking status: Former Smoker ??? Smokeless tobacco: Former User Types: Snuff Quit date: 1997 ??? Tobacco comment: Snus pouch Substance and Sexual Activity ??? Alcohol use: Not on file ??? Drug use: Yes Frequency: 3.0 times per week Types: Marijuana ??? Sexual activity: Not on file Other Topics Concern ??? Not on file Social History Narrative ??? Not on file Social Determinants of Health Financial Resource Strain: Not on file Food Insecurity: Not on file Transportation Needs: Not on file Physical Activity: Not on file Stress: Not on file Social Connections: Not on file Intimate Partner Violence: Not on file Housing Stability: Not on file @ OBJECTIVE Vitals: 05/09/22 0834 05/09/22 0842 BP: 150/88 (!) 153/96 BP Location: Right arm Right arm Patient Position: Sitting Sitting Cuff Size: Large Large Pulse: (!) 59 60 Weight: 135 kg PHYSICAL EXAM COGNITION: Alert and oriented x 4. 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 GAIT: Normal The her around his scalp where his pain is nontender and non indurated ASSESSMENT / PLAN Impression: Encounter Diagnoses Name Primary? Neuralgia Occipital Yes I personally spent 10 minutes in care of the patient today. Time includes both non face to face and face to face patient care. Yanira Mccoy M.D., M.P.H. documented in this encounter Procedure Notes Yanira Mccoy M.D., M.P.H. - 05/09/2022 8:45 AM CDTAssociated Order(s): PM Nerve Block injection Occipital; Greater; Proceduralist Choice; Right Pre-Procedure Diagnose(s): Neuralgia Occipital PM Nerve Block injection Occipital; Greater; Proceduralist Choice; Right Date/Time: 05/09/2022 9:04 AM Performed by: Yanira Mccoy M.D., M.P.H. Authorized by: Yanira Mccoy M.D., M.P.H. PROCEDURE SUMMARY Pre procedure pain score: 1/10 Post procedure pain score: 0/10 Body area: head/face/neck Procedure location (head/face/neck nerve): Right greater occipital Greater occipital position: seated Needle size: 25 G Needle length: 0.5 in Nerve block type: single injection Nerve stimulator: no INJECTED MEDICATIONS: Injection(s), anesthetic agent(s) and/or steroid(s): 4 mL bupivacaine 0.5 % (5 mg/mL) 50 mg methylPREDNISolone acetate 80 mg/mL 40 mg triamcinolone acetonide 40 mg/mL PROCEDURE [...] no apparent complications CONSENT Consent obtained: written PRE-PROCEDURE DETAILS Appropriate hand hygiene, gown, cap, mask, protective eyewear, sterile gloves, skin preparation, sterile drape, and strict aseptic technique were utilized as applicable for the procedure.: yes Skin preparation: alcohol SEDATION / ANESTHESIA Anesthesia method: local infiltration documented in this encounter Plan of Treatment Scheduled Referrals Name Type Priority Associated Diagnoses Order S [facility] Neurology office Outpatient Referral Routine Expe cted: visit (clinic) 08/09/2022 (Approximate), Expires: 08/09/2023 documented as of this encounter Procedures Procedure Name Priority Date/Time Associated Diagnosis Comme nts PM NERVE BLOCK Routine 05/09/2022 9:04 AM Neuralgia Occipital Results for this INJECTION CDT procedure are i n the results section. documented in this encounter Visit Diagnoses Diagnosis Neuralgia Occipital - Primary documented in this encounter Administered Medications Inactive Administered Medications - up to 3 most recent administrations Medication Order MAR Action Action Date Dose Rate Site bupivacaine 0.5 % (5 mg/mL) Given 05/09/2022 9:04 AM CDT 4 mL injection 4 mL (MARCAINE) 4 mL, injection, One-Time Injection, Starting on Sat05/09/22 at 0904, For 1 dose methylPREDNISolone acetate injection 50 mg Given 05/09/2022 9:04 AM CDT 50 mg (DEPO-Medrol) 50 mg, injection, One-Time Injection, Starting on Sat05/09/22 at 0904, For 1 dose triamcinolone acetonide injection 40 mg Given 05/09/2022 9:04 AM CDT 40 mg (KENALOG-40) 40 mg, injection, One-Time Injection, Starting on Sat05/09/22 at 0904, For 1 dose documented in this encounter
[2022-08-16 22:28] LABS: Blood Urea Nitrogen* 16 mg/dL (7-30); Carbon Dioxide* 25 mmol/L (20-32); Creatinine* 0.9 mg/dL (0.5-1.5); D Dimer Quantitative* 0.28 ug/ml (0.00-0.50); Est. Creatinine Clearance* 102.75; Estimated Glomerular Filt Rate 98 ml/min
--- OUTSIDE RECORDS SUMMARY | 2022-08-16 22:28 | XMS_ITS | Encounter Summary ---
:1960 Author Organization [facility] Address [address] [place] [address] Care Team Providers Name Role Phone Unavailable Primary Care Provider Unavailable Encounter Details Date Type Department Care Team Description 03/13/2022 Clinical Communication Department of Neurology Yanira Mccoy, in [facility] bianca Sweet, M.P.H. [address] [facility] [address] [place], [place] [phone] Social History Tobacco Use Types Packs/Day Years Used Date Smoking Tobacco: Former Smokeless Tobacco: Former Snuff Qu it: 1997 Comments: Snus pouch Sex Assigned at Date Recorded Not on file documented as of this encounter Miscellaneous Notes Telephone Encounter - Christy Chandler L.P.N. - 03/13/2022 10:50 AM CDT Patient has been scheduled for 03/20/22 with 11:15 arrival time. Telephone Encounter - Nghia Renae - 03/13/2022 10:34 AM CDT Reason for Communication: Patient is returning a call from Christy Current Can Nursing/Provider leave a detailed message: yes Did the patient refuse triage through Nurse line? (for symptom based concerns): Action Needed: Name of Medication (if relevant): Telephone Encounter - Christy Chandler L.P.N. - 03/13/2022 10:23 AM CDT Message left for patient to return my call in regards to occipital nerve block. documented in this encounter Plan of Treatment Not on filedocumented as of this encounter Visit Diagnoses Not on filedocumented in this encounter
--- OUTSIDE RECORDS SUMMARY | 2022-08-16 22:28 | XMS_ITS | Referral Summary ---
:1960 Author Organization [facility] Address [address] [place] [address] Encounter 05/03/18 - 05/03/18 [facility] [address] [place], [place] [address] [address] [facility] Encounter Diagnosis Other acute sinusitis (Discharge Diagnosis) - 05/03/18 Discharge Disposition: Home Attending Physician: Kassandra Ulloa PA-C Admitting Physician: Kassandra Ulloa PA-C Referring Physician: Kassandra Ulloa PA-C Reason for Visit not feeling well/sinus infection Vital Signs 05/03/18 Blood Pressure 144/89 mmHg (Normal is 100-150/5 0-95 mmHg) Temperature Oral 98.0 DegF (Normal is 96-100 D egF) Pulse Rate 58 bpm (Normal is 55-100 b pm) ADLs (func) Independent Disabilities (func) None Able to Report correct year Correct Able to Report correct month Accurate within 5 days Able to Report correct day of Correct the week Allergies, Adverse Reactions, Alerts No Known Allergies Medications atenolol orally 1 time a day. atorvastatin orally 1 time a day. balsalazide (balsalazide 750 mg oral capsule) 3 cap orally 3 times a day. cholecalciferol (Vitamin D3 2000 intl units oral table t) 1 tab orally 1 time a day. methylPREDNISolone (Medrol Dosepak 4 mg oral tablet) < content styleCode='Bold'>[facility] as directed on package labeling. Refills: 0. Pharmacy [id number]</content></br>316 Ordering provider: Kassandra Ulloa PA-C [place] [id number] montelukast 1 time a day. tamsulosin 0.4 Milligram orally 1 time a day. Social History Social History Type Response Smoking Status Former smoker, quit more aleja n 30 days ago; Smoking in Household No; Interest in Smoking Cessation Class No; Pt received Flexis Smoking Cessation [facility] Ed N/A entered on: 05/03/18 Assessment and Plan Extracted from: Title: Urgent Care Note Author: Kassandra Ulloa PA-C Date: Other acute sinusitis Discussed viral versus allergen as etiol ogy.?Discussed watchful waiting versus??prednisone therapy. ??Discussed that the Medrol Dosepak may alleviate his seasonal allergies for some time.?Administ ration and adverse effects discussed. ?? Risk and benefits discussed. ??He has opted for Medrol Dosepak.??Push fluids at home, hot tea. Hot, steamy showers. Rest.?? Encouraged [id number] Mucinex an d Flonase continued use. Return if any n ew or concerning symptoms develop as discussed and pointed out in the patient education handout. Patient is in understanding and agreement to this plan. All quest ion have been answered at the time of [address].? Orders: methylPREDNISolone, See Instructions, # 1 packet(s), Refill(s) 0, as directed on package labeling, Pharmacy: [id number]
--- OUTSIDE RECORDS SUMMARY | 2022-08-16 22:28 | XMS_ITS | Encounter Summary ---
:1960 Author Organization [facility] Address [address] [place] [address] Care Team Providers Name Role Phone Unavailable Primary Care Provider Unavailable Reason for Referral Outpatient (Routine) - Closed Specialty Diagnoses / Procedures Referred By Contact Refer red To Contact Diagnoses Neuralgia Occipital Yanira Mccoy M.D., [facility] Region Procedures PM Nerve Block injection Occipital; Greater; Proceduralist Choice; Right [place] [facility] [address] [place] [address] Referral ID Status Reason Start Date Expiration Date Visits Requ ested Visits Authorized [id number] Closed 03/08/2022 03/08/2023 1 1 Reason for Visit Reason Comments Occiptal neuralgia Ref. Dr. Ritika Calix Appointment Request (Routine) - Closed Specialty Diagnoses / Procedures Referred By Contact Refer red To Contact Neurology Referral ID Status Reason Start Date Expiration Date Visits Requ ested Visits Authorized [id number] Closed 03/06/2022 03/06/2023 1 Encounter Details Date Type Department Care Team Description 03/08/2022 Comprehensive Visit Department of Yanira Mccoy ms Occipital Neurology in [place] Fowler, (Primary Dx) [place], [place] [facility] [address] [facility] [address] [place], [place] [phone] Social History Tobacco Use Types Packs/Day Years Used Date Smoking Tobacco: Former Smokeless Tobacco: Former Snuff Qu it: 1997 Comments: Snus pouch Sex Assigned at Date Recorded Not on file documented as of this encounter Last Filed Vital Signs Vital Sign Reading Time Taken Comments Blood Pressure 138/85 03/08/2022 3:49 PM CDT Pulse 69 03/08/2022 3:49 PM CDT Temperature - - Respiratory Rate - - Oxygen Saturation - - Inhaled Oxygen Concentration - - Weight 135 kg (298 lb 11.6 oz) 03/08/2022 3:42 PM CDT Height 188 cm (6' 2.02) 03/08/2022 3:42 PM CDT Body Mass Index 38.34 03/08/2022 3:42 PM CDT documented in this encounter Consult Notes Yanira Mccoy M.D., M.P.H[facility] - 03/08/2022 3:45 PM CDT SUBJECTIVE CHIEF COMPLAINT / REASON FOR VISIT Abhay Harman is a 61 y.o. 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 Dr. Ritika Calix). HISTORY OF PRESENT ILLNESS Patient presents for evaluation sharp and shooting pain starting at base of his skull on the right side and shooting up to just over his year. This pain is present most of the time and he is managing it with gabapentin 400 mg every 4 hours. He has not tried any higher doses of that. He says that if hemisses a dose that the pain comes back and it is far worse so he sets an alarm at night so that he wakes up every 4 hours to take his gabapentin. He has been to the emergency department two or 3 times and says that one time the did injection of lidocaine which helped for a while but after about a day pain came back. He has never had steroid injection in that area nor has he taking any. He has inflamma tory bowel disorder and this started [facility] around the time he had a flare-up but this is resolved now. He says that holding his head in any particular position does not seem to make it betteror worse. Sometimes lying down does not make it better. Turning his head either way does not make itworse. Touching the head or neck does not make it worse. He says marijuana 3 times a week have before the headache started. He denies any cranial nerve abnormalities. No past medical history on file. No past surgical history on file. MEDICATIONS: Current Outpatient Medications: ??? acetaminophen (TYLENOL) 500 mg tablet, Take 2 tablets by mouth 3 (three) times a day., Disp: , Rfl: ??? atenoloL (TENORMIN) 50 [...] times a day., Disp: , Rfl: ??? loratadine (CLARITIN) 10 [...] ??? olopatadine (PATANOL) 0.1 % ophthalmic solution, 2 (two) times a day., Disp: , Rfl: ??? oxyCODONE (ROXICODONE) 5 mg immediate release tablet, Take 5 mg by mouth as needed., Disp: , Rfl: ??? sildenafiL (VIAGRA) 100 mg tablet, Take 100 mg by mouth as needed., Disp: , Rfl: ??? tamsulosin (FLOMAX) 0.4 mg 24 hr capsule, Take 0.4 mg by mouth daily., Disp: , Rfl: ??? ibuprofen (ADVIL,MOTRIN) 200 mg tablet, Take 600 mg by mouth 3 (three) times a day., Disp: , Rfl: ??? verapamiL (VERELAN) 180 [...] Stability: Not on file @ OBJECTIVE Vitals: 03/08/22 1542 03/08/22 1549 BP: 141/84 138/85 BP Location: Left arm Left arm Patient Position: Sitting Sitting Cuff Size: Large Large Pulse: 69 69 Weight: 135 kg Height: 188 cm PHYSICAL EXAM COGNITION: Alert and oriented x 4. 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 MOTOR: Full strength throughout the upper and lower extremities bilaterally both proximally and distally. Normal tone. No pronator drift. No tremor. REFLEXES: Normal and symmetric at the biceps, triceps, brachioradialis, knees, and ankles. SENSORY: normal sensation to touch CEREBELLAR: ARMs-normal GAIT: Normal No tenderness to palpation over the area and I see no masses or bumps or induration in the area where he has pain. This is approximately the distribution of the greater occipital nerve on his right side. ASSESSMENT / PLAN Impression: Encounter Diagnoses Name Primary? Neuralgia Occipital Yes Going to try a greater occipital nerve block. We will order the supplies and I am hopeful that it will be in Saturday or Saturday and I can administer this for the patient is an. He is in agreement with this. In the meantime told him he could take gabapentin 500 mg every 4 hours as needed or at least at night. He says he has enough to do that. I personally spent 60 minutes in care of the patient today. Time includes both non face to face and face to face patient care. Yanira Mccoy M.D., M.P.[facility] documented in this encounter Plan of Treatment Not on filedocumented as of this encounter Results PM Nerve Block injection [...] Visit Diagnoses Diagnosis Neuralgia Occipital - Primary Neuralgia Occipital documented in this encounter
--- OUTSIDE RECORDS SUMMARY | 2022-08-16 22:28 | XMS_ITS | Encounter Summary ---
:1960 Author Organization [facility] Address [address] [place] [address] Care Team Providers Name Role Phone Unavailable Primary Care Provider Unavailable Encounter Details Date Type Department Care Team Description 03/08/2022 Orders Only [place] [facility] [address] [place] [address] [place] [address] Social History Tobacco Use Types Packs/Day Years Used Date Smoking Tobacco: Former Smokeless Tobacco: Former Snuff Qu it: 1998 Comments: Snus pouch Sex Assigned at Date Recorded Not on file documented as of this encounter Plan of Treatment Not on filedocumented as of this encounter Visit Diagnoses Not on filedocumented in this encounter
[2022-08-16 22:29] LABS: Calcium* 9.2 mg/dL (8.4-10.6); Glucose* 109 mg/dL (60-115)
[2022-08-16 22:33] LABS: C Reactive Protein* < 0.5 mg/dL (0.5-1.0); Ethanol* < 0.01 % (0.01-0.03)
[2022-08-16 22:44] LABS: SARS PCR* Negative SARS-CoV-2 (Negative)
[2022-08-16 22:58] LABS: NT Pro B Type NatriureticPept* 69 PG/mL (0-125)
[2022-08-16 23:08] VITALS: BP 143/78; PULSE 53; RESP 16; O2SAT 96
[2022-08-16 23:12] LABS: Troponin I* < 0.01 ng/mL (0.01-0.04)
[2022-08-17 00:06] VITALS: BP 147/65; PULSE 50; RESP 16; O2SAT 96
== END 2022-08-17 00:18 | disposition home or self-care (01) ==
PROVIDERS: Emergency Provider Family Medicine; PCP Family Medicine
DX: R06.02 Shortness of breath (principal)
CPT/HCPCS: 36415; 71260; 80048; 80076; 82077; 83605; 83880; 84484; 85025; 85379; 85610; 86140; 87635; 93005; 93225; 93226; 94761; 99285; A9270; Q9967

== ENCOUNTER 2025-10-05 07:26 | Outpatient (CLI) | payer OTHER, SELFPAY | END 2025-10-05 07:27 | disposition home or self-care (01) | LOC: INJ CL 07:27 | PROVIDERS: PCP Family Medicine; Visit Provider Family Medicine | DX: M54.16 Radiculopathy, lumbar region (principal); M51.369 Other intervertebral disc degeneration, lumbar region without mention of lumbar back pain or lower extremity pain | CPT/HCPCS: 62323; Q9966 ==